=== PATIENT | female | born 1960 | race Caucasian/White ===

== ENCOUNTER 2019-05-22 07:27 | Outpatient (CLI) | payer BC, SELFPAY ==
--- NOTE | ~2019-05-22 | XR_ITS ---
XR lumbar spine 6V w bending 05/22/2019 08:23 Indication: Low back pain Procedure: 7 views lumbar spine Comparison: No prior studies for comparison. Findings: There is disc narrowing at L5-S1. There are facet degenerative changes at L4-5 and L5-S1. T here is grade 1 degenerative spondylolisthesis at L4-5. No fracture or traumatic malalignment. No alt eration of alignment with flexion/extension. No evidence for spondylolysis. Sacral foramen are symmet hever. Impression: 1: Mild-moderate lower lumbar spondylosis with grade 1 spondylolisthesis at L4-5. Reviewed, dictated and finalized at location A. IONS CLERK Impression: 1: Mild-moderate lower lumbar spondylosis with grade 1 spondylolisthesis at L4- 5.
[2019-05-22 07:59] LABS: Hematocrit 40.1 % (37.0-47.0); Hemoglobin 12.8 g/dL (12.0-15.0)
[2019-05-22 08:12] LABS: Cholesterol 177 mg/dL (0-200); HDL Direct 57 mg/dL; Triglycerides 182 mg/dL (<150)
[2019-05-22 08:13] LABS: Hemoglobin A1C 5.9 % (<5.7)
[2019-05-22 08:23] LABS: LDL Cholesterol Direct 76 mg/dL
[2019-05-22 08:45] LABS: Iron 49 ug/dL (37-170)
[2019-05-22 08:55] LABS: Percent Iron Saturation 14 % (20-50)
== END 2019-05-22 07:28 | disposition home or self-care (01) ==
PROVIDERS: PCP Internal Medicine; Visit Provider Internal Medicine
DX: R73.02 Impaired glucose tolerance (oral) (principal); D64.9 Anemia, unspecified; I10 Essential (primary) hypertension; E78.5 Hyperlipidemia, unspecified; M47.896 Other spondylosis, lumbar region
CPT/HCPCS: 36415; 72114; 80061; 83036; 83540; 83550; 85014; 85018

== ENCOUNTER 2019-07-19 16:08 | Outpatient (CLI) | payer BC, SELFPAY ==
--- NOTE | ~2019-07-19 | XR_ITS ---
EXAMINATION: XR chest 2V EXAM DATE: 07/19/2019 16:41 INDICATION: Shortness of breath. Exposure to bleach. TECHNIQUE: Frontal and lateral projections of the chest obtained and reviewed. Comparison is made to prior examination from 11/24/2017. FINDINGS: Right lower rib costochondral cartilage calcification. The lungs are clear. There are no pleural effusions. The cardiomediastinal silhouette is within normal limits. There is no pneumothor ax suspected. There are bony degenerative changes. IMPRESSION: No acute cardiopulmonary findings. Reviewed, dictated and finalized at location A.
== END 2019-07-19 16:09 | disposition home or self-care (01) ==
PROVIDERS: PCP Internal Medicine; Visit Provider Internal Medicine
DX: R06.02 Shortness of breath (principal)
CPT/HCPCS: 71046

== ENCOUNTER 2020-09-22 07:14 | Outpatient (CLI) | payer BC, SELFPAY ==
[2020-09-22 07:51] LABS: Hematocrit 36.8 % (37.0-47.0); Hemoglobin 12.2 g/dL (12.0-15.0)
[2020-09-22 08:00] LABS: Hemoglobin A1C 5.5 % (<5.7)
[2020-09-22 08:01] LABS: Alanine Aminotransferase 16 U/L (4-35); Albumin Level 4.2 g/dL (3.5-5.1); Alkaline Phosphatase 69 U/L (38-126); Anion Gap 9 mmol/L (8-16); Aspartate Amino Transferase 20 U/L (14-36); Bilirubin,Total 0.5 mg/dL (0.2-1.3); Blood Urea Nitrogen 29 mg/dL (7-17); Calcium 9.7 mg/dL (8.4-10.2); Carbon Dioxide 26 mmol/L (22-30); Chloride 105 mmol/L (98-107); Cholesterol 199 mg/dL (0-200); Estimated Glomerular Filt Rate > 60; Glucose 103 mg/dL (65-105); HDL Direct 54 mg/dL; Potassium 4.3 mmol/L (3.4-5.0); Sodium 140 mmol/L (137-145); Triglycerides 141 mg/dL (<150)
[2020-09-22 08:13] LABS: LDL Cholesterol Direct 66 mg/dL
== END 2020-09-22 07:15 | disposition home or self-care (01) ==
PROVIDERS: PCP Internal Medicine; Visit Provider Internal Medicine
DX: R73.02 Impaired glucose tolerance (oral) (principal); I10 Essential (primary) hypertension; E61.1 Iron deficiency; E78.5 Hyperlipidemia, unspecified
CPT/HCPCS: 36415; 80053; 80061; 83036; 85014; 85018

== ENCOUNTER 2021-02-02 03:00 | Emergency (ER) | payer BC, SELFPAY ==
--- NOTE | ~2021-02-02 | XR_ITS ---
Corrected Report Wrong Visit # 02/06/2021 SLJ XR knee LT 3V DATE: 02/02/2021 04:30 INDICATION: Left knee pain. No known injury. TECHNIQUE: 4 views including crosstable lateral COMPARISON: None FINDINGS: There is periarticular spurring at all 3 compartments, with moderately severe loss of joint space at the medial compartment, compatible with tricompartment osteoarthritis. No fracture or dislocation or joint effusion. No periosteal reaction or bone destruction. No radiopaque intra-articular loose body or chondrocalcinosis. 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 GRACE
[2021-02-02 03:00] VITALS: BP 113/71; PULSE 90; RESP 18; TEMP 36.7; O2SAT 99
[2021-02-02 04:30] VITALS: BP 100/66; PULSE 70; RESP 18; O2SAT 97
--- NOTE | 2021-02-02 05:42 | ED.GENADULT ---
HPI - General Adult History of Present Illness HPI narrative: Patient is 60-year-old female presents emerged part with chief complaint of left knee pain. The patient reports that she has been having some discomfort in her left knee for the last several days reports that today she turned and felt her knee pop. The patient states that she had severe pain in the knee worse with movement and improved with rest. The patient denies falling denies striking her head. Related Data Allergies Allergy/AdvReac Type Severity Reaction Status Date / Time No Known Allergies Allergy Mild Verified 09/29/20 07:44 Review of Systems Review of Systems: A 10 system review of systems was completed on the patient and is negative except for what is stated in the HPI. Nursing and ancillary documentation was reviewed. [facility] Surgical History Surgical History Hx of tonsillectomy Family History Family History Mother Family history of malignant neoplasm Family history of lung cancer Sibling Family history of malignant neoplasm Patient's sister is in good health Patient's brother is in good health Father Family history of lung cancer Social History Social History Years smoked: 15 Smoking status: Former smoker Tobacco type: cigarettes Second hand tobacco smoke exposure: Yes Smoking end date: 04/21/99 Alcohol intake: never Exam Narrative: GENERAL: Well-appearing, well-nourished, and in no acute distress. HEAD: Normocephalic, atraumatic. EYES: PERRLA and EOMI. ENT: Nares clear, no rhinorrhea or epistaxis. Mucous membranes moist. NECK: Supple. CHEST: Clear to auscultation. No respiratory distress. HEART: Regular rate and rhythm. No murmur heard. Normal peripheral pulses. ABDOMEN: Soft, nontender, nondistended, normal active bowel sounds. EXTREMITIES: Normal range of motion. No edema. There is tenderness to palpation of the left knee there is no bony step-off noted SKIN: Warm, dry, no rash. NEURO: No focal deficits. Alert and oriented x3. PSYCH: Normal mood and affect. Discharge Plan Discharge Clinical Impression: Left knee sprain Qualifiers: Encounter type: initial encounter Involved ligament of knee: unspecified ligament Qualified Code(s): S83.92XA - Sprain of unspecified site of left knee, initial encounter Patient Disposition: Home, Self-Care Condition: Stable Instructions: Antibiotic Form, Knee Sprain (DC), Knee Immobilizer (ED) Prescriptions: New hydrocodone-acetaminophen 5-325 mg tablet 1 tablet PO Q6H PRN (Reason: pain) 3 Days Qty: 12 RF: 0 No Action Eliquis 5 mg tablet See Rx Instructions .ROUTE .COMPLEX Qty: 60 RF: 5 ferrous sulfate 325 mg (65 mg iron) tablet 325 mg PO DAILY Qty: 90 RF: 1 lisinopril-hydrochlorothiazide 20-25 mg tablet 1 tablet PO DAILY Qty: 90 RF: 1 tramadol 50 mg tablet 50 mg PO Q8H PRN (Reason: pain) Qty: 60 RF: 2 Follow-up/Referrals: Kane Bonilla DO [Primary Care Provider] - Time of Disposition: 05:48
--- NOTE | 2021-02-02 06:05 | PC.NURSE ---
VORB for [place] 5/325 received for pt and administered at 0330. Pain reassessed 30 minutes later. Pain went from 10/10 to 5/10. This was during [employer] downtime.
--- NOTE | 2021-02-02 06:06 | PC.NURSE ---
VORB received during downtime for knee immobilizer and applied at 0530.
[2021-02-02 06:08] VITALS: BP 105/75; PULSE 80; RESP 16; O2SAT 99
== END 2021-02-02 06:23 | disposition home or self-care (01) ==
PROVIDERS: Emergency Provider Emergency Medicine; PCP Internal Medicine
DX: S83.92XA Sprain of unspecified site of left knee, initial encounter (principal); Z87.891 Personal history of nicotine dependence; X50.9XXA Other and unspecified overexertion or strenuous movements or postures, initial encounter
CPT/HCPCS: 73562; 99283

== ENCOUNTER 2021-04-07 08:00 | Outpatient (CLI) | payer BC, SELFPAY ==
[2021-04-07 08:48] LABS: Hematocrit 38.9 % (37.0-47.0); Hemoglobin 12.2 g/dL (12.0-15.0)
[2021-04-07 09:05] LABS: Alanine Aminotransferase 20 U/L (4-35); Albumin Level 4.3 g/dL (3.5-5.1); Alkaline Phosphatase 75 U/L (38-126); Anion Gap 10 mmol/L (8-16); Aspartate Amino Transferase 24 U/L (14-36); Bilirubin,Total 0.6 mg/dL (0.2-1.3); Blood Urea Nitrogen 22 mg/dL (7-17); Calcium 9.2 mg/dL (8.4-10.2); Carbon Dioxide 26 mmol/L (22-30); Chloride 103 mmol/L (98-107); Cholesterol 192 mg/dL (0-200); Estimated Glomerular Filt Rate 56; Glucose 115 mg/dL (65-110); HDL Direct 57 mg/dL; Hemoglobin A1C 5.6 % (<5.7); Potassium 4.4 mmol/L (3.4-5.0); Sodium 139 mmol/L (137-145); Triglycerides 169 mg/dL (<150)
[2021-04-07 09:06] LABS: Iron 69 ug/dL (37-170)
[2021-04-07 09:15] LABS: Percent Iron Saturation 22 % (20-50)
[2021-04-07 09:17] LABS: LDL Cholesterol Direct 78 mg/dL
== END 2021-04-07 08:01 | disposition home or self-care (01) ==
LOC: ANHLAB 08:02
PROVIDERS: PCP Internal Medicine; Visit Provider Nurse Practitioner
DX: E78.5 Hyperlipidemia, unspecified (principal); R73.02 Impaired glucose tolerance (oral); E61.1 Iron deficiency; I10 Essential (primary) hypertension
CPT/HCPCS: 36415; 80053; 80061; 83036; 83540; 83550; 85014; 85018

== ENCOUNTER 2021-10-13 07:58 | Outpatient (CLI) | payer BC, SELFPAY ==
[2021-10-13 08:41] LABS: Hematocrit 40.5 % (37.0-47.0); Hemoglobin 12.7 g/dL (12.0-15.0)
[2021-10-13 08:55] LABS: Alanine Aminotransferase 17 U/L (6-35); Albumin Level 4.1 g/dL (3.5-5.1); Alkaline Phosphatase 68 U/L (38-126); Anion Gap 6 mmol/L (8-16); Aspartate Amino Transferase 17 U/L (14-36); Bilirubin,Total 0.6 mg/dL (0.2-1.3); Blood Urea Nitrogen 26 mg/dL (7-17); Calcium 8.6 mg/dL (8.4-10.2); Carbon Dioxide 25 mmol/L (22-30); Chloride 106 mmol/L (98-107); Cholesterol 160 mg/dL (0-200); Estimated Glomerular Filt Rate 50; Glucose 108 mg/dL (65-110); HDL Direct 48 mg/dL; Potassium 4.4 mmol/L (3.4-5.0); Sodium 137 mmol/L (137-145); Triglycerides 157 mg/dL (<150)
[2021-10-13 09:05] LABS: Hemoglobin A1C 5.7 % (<5.7)
[2021-10-13 09:06] LABS: LDL Cholesterol Direct 65 mg/dL
[2021-10-13 09:09] LABS: Iron 66 ug/dL (37-170)
[2021-10-13 09:18] LABS: Percent Iron Saturation 20 % (20-50)
== END 2021-10-13 07:59 | disposition home or self-care (01) ==
LOC: ANHLAB 08:00
PROVIDERS: PCP Internal Medicine; Visit Provider Internal Medicine
DX: I10 Essential (primary) hypertension (principal); R73.02 Impaired glucose tolerance (oral); D64.9 Anemia, unspecified; E78.5 Hyperlipidemia, unspecified; E61.1 Iron deficiency
CPT/HCPCS: 36415; 80053; 80061; 82728; 83036; 83540; 83550; 85014; 85018

== ENCOUNTER 2022-05-03 07:03 | Outpatient (CLI) | payer BC, SELFPAY ==
[2022-05-03 07:54] LABS: Alanine Aminotransferase 21 U/L (6-35); Albumin Level 4.4 g/dL (3.5-5.1); Alkaline Phosphatase 59 U/L (38-126); Anion Gap 8 mmol/L (8-16); Aspartate Amino Transferase 20 U/L (14-36); Bilirubin,Total 0.6 mg/dL (0.2-1.3); Blood Urea Nitrogen 28 mg/dL (7-17); Carbon Dioxide 25 mmol/L (22-30); Chloride 107 mmol/L (98-107); Cholesterol 157 mg/dL (0-200); Estimated Glomerular Filt Rate 50; Glucose 113 mg/dL (65-110); HDL Direct 59 mg/dL; Potassium 4.6 mmol/L (3.4-5.0); Sodium 140 mmol/L (137-145); Triglycerides 122 mg/dL (<150)
[2022-05-03 08:04] LABS: LDL Cholesterol Direct 57 mg/dL
[2022-05-03 11:27] LABS: Hemoglobin A1C 5.7 % (<5.7)
== END 2022-05-03 07:04 | disposition home or self-care (01) ==
LOC: ANHLAB 07:05
PROVIDERS: PCP Internal Medicine; Visit Provider Nurse Practitioner
DX: E78.5 Hyperlipidemia, unspecified (principal); R73.02 Impaired glucose tolerance (oral)
CPT/HCPCS: 36415; 80053; 80061; 83036

== ENCOUNTER 2022-09-27 07:06 | Outpatient (CLI) | payer BC, SELFPAY ==
[2022-09-27 07:40] LABS: Anion Gap 6 mmol/L (8-16); Blood Urea Nitrogen 29 mg/dL (7-17); Calcium 8.8 mg/dL (8.4-10.2); Carbon Dioxide 28 mmol/L (22-30); Chloride 105 mmol/L (98-107); Estimated Glomerular Filt Rate 50; Glucose 108 mg/dL (65-110); Potassium 4.2 mmol/L (3.4-5.0); Sodium 139 mmol/L (137-145)
== END 2022-09-27 07:07 | disposition home or self-care (01) ==
LOC: ANHLAB 07:06
PROVIDERS: PCP Family Medicine; Visit Provider Nurse Practitioner Family
DX: I10 Essential (primary) hypertension (principal)
CPT/HCPCS: 36415; 80048

== ENCOUNTER 2023-11-14 06:38 | Outpatient (CLI) | payer OTHER, SELFPAY ==
[2023-11-14 07:32] LABS: Hematocrit 44.1 % (37.0-47.0); Hemoglobin 14.5 g/dL (12.0-15.0); Mean Corpuscular HGB Conc 32.9 g/dl (32-36); Mean Corpuscular Hemoglobin 32.3 pg (26-34); Mean Corpuscular Volume 98.2 fl (80-100); Mean Platelet Volume 9.9 fl (7.4-10.4); Platelet Count Result 247 k/mm3 (150-375); Red Blood Count 4.49 M/mm3 (4.2-5.4); Red Cell Distribution Width 12.8 % (11.5-14.5); White Blood Count 8.3 K/mm3 (4.5-10.0)
[2023-11-14 07:49] LABS: Alanine Aminotransferase 21 U/L (6-35); Albumin Level 4.6 g/dL (3.5-5.1); Alkaline Phosphatase 59 U/L (38-126); Anion Gap 13 mmol/L (4-12); Aspartate Amino Transferase 25 U/L (14-36); Bilirubin,Total 0.6 mg/dL (0.2-1.3); Blood Urea Nitrogen 32 mg/dL (7-17); Calcium 9.1 mg/dL (8.4-10.2); Carbon Dioxide 24 mmol/L (22-30); Chloride 103 mmol/L (98-107); Cholesterol 198 mg/dL (0-200); Estimated Glomerular Filt Rate 50; Glucose 112 mg/dL (65-110); HDL Direct 52 mg/dL; Sodium 140 mmol/L (137-145); Triglycerides 188 mg/dL (<150)
[2023-11-14 07:59] LABS: LDL Cholesterol Direct 85 mg/dL
[2023-11-14 08:56] LABS: Hemoglobin A1C 5.8 % (<5.7)
== END 2023-11-14 06:39 | disposition home or self-care (01) ==
LOC: ANHLAB 06:39
PROVIDERS: PCP Nurse Practitioner; Visit Provider Nurse Practitioner
DX: E78.5 Hyperlipidemia, unspecified (principal); R73.02 Impaired glucose tolerance (oral); E61.1 Iron deficiency; Z79.899 Other long term (current) drug therapy
CPT/HCPCS: 36415; 80053; 80061; 83036; 84443; 85027

== ENCOUNTER 2024-07-02 06:59 | Outpatient (CLI) | payer MEDICARE, OTHER, SELFPAY ==
--- OUTSIDE RECORDS SUMMARY | 2024-07-02 07:06 | XMS_ITS | Clinical Summary ---
Author Organization [facility] Address [address] [place] [address] Care Team Providers Care Import/Export Agent Name Role Phone Lobo Ruby MD Primary Care Provider [phone] Allergies No known active allergies Medications rivaroxaban (XARELTO) 15 mg Tablet Take 15 mg by mouth 2 times daily. Active lisinopril-hydro CHLOROthiazide (ZESTORETIC) 10-12.5 mg tablet Take 1 Tablet by mouth daily. Active HYDROcodone-acet aminophen (NORCO) 5-325 mg tablet Take 1 Tablet by mouth every 6 hours as needed for Pain, Moderate. Active Active Problems Problem Noted Date Diagnosed Date Acute pulmonary embolism 03/28/2016 Type 2 diabetes mellitus without complication Obstructive sleep apnea 03/28/2016 Family History Medical History Relation Name Comments Lung Cancer Father Cancer Mother Diabetes Sister 1 Cancer Sister 2 Relation Name Status Comments Brother 1 Alive Brother 2 Alive Father Mother Sister 1 Alive Sister 2 Social History Tobacco Use Types Packs/Day Years Used Date Smoking Tobacco: Former Cigarettes 1 05/29/1977 - 03/28/1996 Comments:1 pack/3 mo Alcohol Use Standard Drinks/Week Comments No 0 (1 standard drink = 0.6 oz pur e alcohol) Comments No Sex and Gender Information Value Date Recorded Sex Assigned at Not on file Legal Sex Female 8:14 AM FOUNDER PRESIDENT AND CEO Gender Identity Not on file Sexual Orientation Not on file Last Filed Vital Signs Vital Sign Reading Time Taken Comments Blood Pressure 140/86 03/28/2016 12:51 PM FOUNDER PRESIDENT AND CEO Pulse 84 03/28/2016 12:51 PM FOUNDER PRESIDENT AND CEO Temperature 36.4 C (97.5 F) 03/28/2016 12:51 PM FOUNDER PRESIDENT AND CEO Respiratory Rate 18 03/28/2016 12:51 PM FOUNDER PRESIDENT AND CEO Oxygen Saturation - - Inhaled Oxygen Concentration - - Weight 166.5 kg (367 lb) 03/28/2016 12:51 PM FOUNDER PRESIDENT AND CEO Height 170.2 cm (5' 7) 03/28/2016 12:51 PM FOUNDER PRESIDENT AND CEO Body Mass Index 57.48 03/28/2016 12:51 PM FOUNDER PRESIDENT AND CEO Plan of Treatment Health Maintenance Due Date Last Done Comments DIABETES ANNUAL FOOT EXAM 1977 DIABETES ANNUAL RETINAL EXAM 1977 DIABETES HBA1C Q 6 MONTHS 1977 DIABETES MICROALBUMIN ANNUAL SCREEN 1977 LDL CHOLESTEROL ANNUAL 1977 DTAP/TDAP/TD VACCINES (1 - Tdap) 1978 PNEUMOCOCCAL VACCINE 50+ YEARS (1 of 2 - PCV) 04/25/18 79 CERVICAL CANCER SCREENING 1989 BREAST CANCER SCREENING 1999 COLORECTAL SCREENING 2004 Colorectal Cancer Screening 2004 FIT-DNA Q 3 years 2004 FIT/FOBT Q 1 year 2004 Flex Sig/CT Colonography Q 5 years 2004 ZOSTER VACCINE (1 of 2) 2009 INFLUENZA VACCINE (#1) 2023 OSTEOPOROSIS SCREENING 2024 RSV VACCINE (60+ or ) (1 - 1-dose 75+ series) 2034 Insurance [facility] BLUE ACCESS/TRUE BLUE PPO Care Teams Import/Export Agent Relationship Specialty Start Date End Date Lobo Ruby MD [address] [facility] [address] [place] [address] PCP - General Internal Medicine 03/28/16
--- OUTSIDE RECORDS SUMMARY | 2024-07-02 07:06 | XMS_ITS | Clinical Summary ---
Author Organization [facility] Address [address] [place] [id number] Care Team Providers Care Trimming Operator Name Role Phone Unavailable Primary Care Provider Unavailabl e Social History Tobacco Use Types Packs/Day Years Used Date Smoking Tobacco: Never Assessed Comments Unknown Sex and Gender Information Value Date Recorded Sex Assigned at Not on file Legal Sex Female 7:56 PM CDT Gender Identity Not on file Sexual Orientation Not on file Last Filed Vital Signs Vital Sign Reading Time Taken Comments Blood Pressure 136/68 04/11/2017 12:57 PM UNLOADER OPERATOR Pulse 88 04/11/2017 12:57 PM UNLOADER OPERATOR Temperature - - Respiratory Rate - - Oxygen Saturation - - Inhaled Oxygen Concentration - - Weight 167.4 kg (369 lb) 04/11/2017 12:57 PM UNLOADER OPERATOR Height 170.2 cm (5' 7) 04/11/2017 12:57 PM UNLOADER OPERATOR Body Mass Index 57.79 04/11/2017 12:57 PM UNLOADER OPERATOR Plan of Treatment Health Maintenance Due Date Last Done Comments Cervical Cancer Screening Pa p Smear (Age 30 to 64) Every 3 Years 1959 Colorectal Cancer Screening Colonoscopy (10 Years) 1959 Annual Physical 1962 Hepatitis C 1977 DTaP, Tdap and Td Vaccines ( 1 - Tdap) 1978 Cervical Cancer Screening Pa p with HPV Testing (Age 30 to 64) Every 5 Years 1989 Cervical Cancer Screening with HPV 1989 Mammogram Screening 1999 Zoster Vaccines (1 of 2) 2009 COVID-19 Vaccine ( - 2023-2 5 season) 2023 Influenza Adult (#1) 2024 Dexa Scan (General) 2024 Pneumococcal Vaccine: 65+ Ye ars (1 of 1 - PCV) 2024 RSV Immunization or 60+ Years (1 - 1-dose 75+ series) 2034 Meningococcal B Vaccine Aged Out No l onger eligible based on patient's age to complete this topic Meningococcal Vaccine Aged Out No alisa rhina eligible based on patient's age to complete this topic Pneumococcal Vaccine: Pediat rics (0 to 5 Years) and At-Risk Patients (6 to 64 Years) Aged Out No longer eligible b ased on patient's age to complete this topic RSV Immunizations Under 20 Months Aged Out No longer eligible based on patient's age to complete this topic
[2024-07-02 07:52] LABS: Alanine Aminotransferase 23 U/L (6-35); Albumin Level 4.7 g/dL (3.5-5.1); Alkaline Phosphatase 65 U/L (38-126); Anion Gap 14 mmol/L (4-12); Aspartate Amino Transferase 25 U/L (14-36); Bilirubin,Total 0.6 mg/dL (0.2-1.3); Blood Urea Nitrogen 26 mg/dL (7-17); Calcium 9.7 mg/dL (8.4-10.2); Carbon Dioxide 21 mmol/L (22-30); Chloride 107 mmol/L (98-107); Estimated Glomerular Filt Rate 46; Glucose 121 mg/dL (65-110); Potassium 4.3 mmol/L (3.4-5.0); Sodium 142 mmol/L (137-145)
[2024-07-02 08:57] LABS: Hemoglobin A1C 5.5 % (<5.7)
== END 2024-07-02 07:00 | disposition home or self-care (01) ==
PROVIDERS: PCP Nurse Practitioner; Visit Provider Nurse Practitioner
DX: R73.02 Impaired glucose tolerance (oral) (principal); I10 Essential (primary) hypertension
CPT/HCPCS: 36415; 80053; 83036

== ENCOUNTER 2025-01-07 06:49 | Outpatient (CLI) | payer MEDICARE, OTHER, SELFPAY ==
--- OUTSIDE RECORDS SUMMARY | 2025-01-07 06:52 | XMS_ITS | Clinical Summary ---
Author Organization [facility] Address [address] [place] [id number] Care Team Providers Care Audiologist Name Role Phone Unavailable Primary Care Provider [...] Comments Blood Pressure 136/68 04/11/2017 12:57 PM AIR OPERATIONS MANAGER Pulse 88 04/11/2017 12:57 PM AIR OPERATIONS MANAGER Temperature - - Respiratory Rate - - Oxygen Saturation - - Inhaled Oxygen Concentration - - Weight 167.4 kg (369 lb) 04/11/2017 12:57 PM AIR OPERATIONS MANAGER Height 170.2 cm (5' 7) 04/11/2017 12:57 PM AIR OPERATIONS MANAGER Body Mass Index 57.79 04/11/2017 12:57 PM AIR OPERATIONS MANAGER Plan of Treatment Health Maintenance Due Date Last Done Comments Colorectal Cancer Screening Colonoscopy (10 Years) 1959 Hepatitis C 1977 DTaP, Tdap and Td Vaccines ( 1 - Tdap) 1978 Mammogram Screening 1999 Pneumococcal Vaccine: 50+ Ye ars (1 of 1 - PCV) 2009 Zoster Vaccines (1 of 2) 2009 Dexa Scan (General) 2024 COVID-19 Vaccine ( - 2023-2 5 season) 2024 RSV Immunization or 60+ Years (1 [...]
[2025-01-07 07:19] LABS: Hematocrit 45.2 % (37.0-47.0); Hemoglobin 14.3 g/dL (12.0-15.0); Mean Corpuscular HGB Conc 31.6 g/dl (32-36); Mean Corpuscular Hemoglobin 31.6 pg (26-34); Mean Corpuscular Volume 99.8 fl (80-100); Platelet Count Result 269 k/mm3 (150-375); Red Blood Count 4.53 M/mm3 (4.2-5.4); White Blood Count 8.0 K/mm3 (4.5-10.0)
[2025-01-07 07:39] LABS: Alanine Aminotransferase 24 U/L (6-35); Albumin Level 4.6 g/dL (3.5-5.1); Alkaline Phosphatase 56 U/L (38-126); Anion Gap 14 mmol/L (4-12); Aspartate Amino Transferase 30 U/L (14-36); Bilirubin,Total 0.7 mg/dL (0.2-1.3); Blood Urea Nitrogen 26 mg/dL (7-17); Calcium 9.3 mg/dL (8.4-10.2); Carbon Dioxide 21 mmol/L (22-30); Chloride 105 mmol/L (98-107); Cholesterol 200 mg/dL (0-200); Estimated Glomerular Filt Rate 46; Glucose 128 mg/dL (65-110); HDL Direct 63 mg/dL; Potassium 4.2 mmol/L (3.4-5.0); Sodium 140 mmol/L (137-145); Total Protein 8.1 g/dL (6.3-8.2); Triglycerides 191 mg/dL (<150)
[2025-01-07 07:46] LABS: Iron 81 ug/dL (37-170)
[2025-01-07 07:48] LABS: Percent Iron Saturation 26 % (20-50)
[2025-01-07 08:14] LABS: Thyroid Stimulating Hormone 1.270 uIU/mL (0.465-4.680)
[2025-01-07 09:02] LABS: Hemoglobin A1C 5.7 % (<5.7)
== END 2025-01-07 06:50 | disposition home or self-care (01) ==
PROVIDERS: PCP Nurse Practitioner; Visit Provider Nurse Practitioner
DX: E78.5 Hyperlipidemia, unspecified (principal); E03.9 Hypothyroidism, unspecified; E61.1 Iron deficiency; R73.02 Impaired glucose tolerance (oral)
CPT/HCPCS: 36415; 80053; 80061; 83036; 83540; 83550; 84443; 85027